=== PATIENT | female | born 1990 | race Caucasian/White ===

== ENCOUNTER 2023-08-16 09:27 | Observation (INO) | payer OTHER, SELFPAY ==
[2023-08-16 09:57] VITALS: BP 109/69; PULSE 85; TEMP 36.1
[2023-08-16 10:17] LABS: Bilirubin Urine NEGATIVE (NEGATIVE); Blood Urine NEGATIVE (NEGATIVE); Clarity Urine CLEAR (CLEAR); Color Urine YELLOW (YELLOW); Glucose Urine UA NEGATIVE (NEGATIVE); Ketones Urine NEGATIVE (NEGATIVE); Leukocyte Esterase Urine LARGE (NEGATIVE); Nitrite Urine NEGATIVE (NEGATIVE); Protein Urine NEGATIVE (NEG/TRACE); Urobilinogen Urine 0.2 EU/dL (0.2-1.0)
[2023-08-16 10:18] LABS: Urine Microscopic Indicated YES
[2023-08-16 10:22] LABS: Amnisure NEGATIVE (NEGATIVE)
--- NOTE | 2023-08-16 10:31 | US_ITS ---
The [address] [address] Patient Name: SURINDER BECKER MRN: [id number] date: 1990 Sex: F Assigned Patient Location: [facility] Current Patient Location: [facility] Accession/Order Number: [id number] Exam Date: 08/16/2023 10:45 Report Date: 08/16/2023 11:20 At the request of: ODETTE ORTEGA Procedure: US OB amniotic fluid vol Obstetrical ultrasound, limited CLINICAL: Possible ROM TECHNIQUE: Transabdominal obstetrical ultrasound was performed. FINDINGS: There are no prior comparison studies at this institution. There is a single living intrauterine fetus in breech presentation with heart rate of 164 beats per minute. Amniotic fluid index is 13.28 cm, with maximum vertical pocket of 5.35 cm. US/US OB amniotic fluid vol IMPRESSION: 1. Single intrauterine fetus in breech presentation with heart rate of 164 beats per minute. The fetus is otherwise not evaluated. 2. Amniotic fluid index of 13.28 cm, with maximum vertical pocket of 5.35 cm. Electronically authenticated by: GEETA MEDEL Date: 08/16/2023 11:20
[2023-08-16 10:34] LABS: Bacteria Urine SMALL #/HPF (NONE SEEN); Cast Seen? NONE SEEN #/LPF (NONE SEEN); Crystals Seen? None Seen #/HPF (None Seen); Mucus Urine NONE SEEN (NONE SEEN); Squamous Epithelial Cell Urine MODERATE #/LPF (NONE/RARE); WBC Urine 20-50 #/HPF (NONE SEEN)
[2023-08-16 10:36] LABS: Urine Culture Indicated YES
== END 2023-08-16 12:14 | disposition home or self-care (01) ==
LOC: FBC 09:34
PROVIDERS: Admitting Provider Obstetrics & Gynecology; Visit Provider Obstetrics & Gynecology
DX: Z03.71 Encounter for suspected problem with amniotic cavity and membrane ruled out (principal); Z3A.31 31 weeks gestation of pregnancy
CPT/HCPCS: 59025; 76815; 81001; 84112; 87070; 87086; G0378; G0379

== ENCOUNTER 2023-10-10 07:15 | Outpatient (OUT) | payer OTHER, SELFPAY ==
--- OUTSIDE RECORDS SUMMARY | 2023-10-10 07:30 | XMS_ITS | CCD ---
Author Name Unknown Address [address] [place] [address] Organization [facility] Care Team Providers Care Freelance Web Designer Name Role Phone ZHANG CURTIS Unavailable Unavailable ZHANG CURTIS Unavailable Unavailable NONE, . Unavailable Unavailable Reyna MAI, Anne Marie De La Rosa Primary Care Provider Mary RODNEY, Leidy Calderon Unavailable FLORO RENE L Attending Unavailable FLORO, RENE L Attending Unavailable FLORO, RENE L Attending Unavailable FLORO, RENE L Attending Unavailable FLORO, RENE L Referring Unavailable FLORO, RENE L Attending Unavailable FLORO, RENE L Referring Unavailable FLORO, RENE L Attending Unavailable Medications Current Medications Medication Drug Class(es) Dates Sig (Normalized) Sig (Original) docusate sodium 100 mg oral capsule (2 sources) Start: 07-30-2023 End: 11-27-2023 take 1 capsule by mouth in the morning docusate sodium (Colace) 100 MG capsule Indications: Anemia during in third trimester Take 1 capsule (100 mg) by mouth in the morning and 1 capsule (100 mg) before bedtime. 60 capsule 3 07/30/2023 11/27/2023 Active ferrous sulfate 325 mg oral tablet (2 sources) Start: 07-30-2023 End: 11-27-2023 take 1 tablet by mouth in the morning ferrous sulfate (FerrouSul) 325 (65 Fe) MG tablet Indications: Anemia during in third trimester Take 1 tablet (325 mg) by mouth in the morning and 1 tablet (325 mg) before bedtime. 60 tablet 3 07/30/2023 11/27/2023 Active fluconazole 150 mg oral tablet (2 sources) Azole Antifungal Start: 10-08-2023 End: 10-08-2023 take 1 tablet by mouth once fluconazole (Diflucan) 150 MG tablet Indications: Yeast infection Take 1 tablet (150 mg) by mouth 1 (one) time for 1 dose 1 tablet 0 10/08/2023 10/08/2023 Active guaiFENesin 20 mg/ml oral solution (2 sources) Start: 08-06-2023 take 10 mL by mouth three times daily as needed for cough guaiFENesin (Robitussin) 100 MG/5ML liquid Indications: Upper respiratory tract infection, unspecified type Take 10 mL (200 mg) by mouth 3 (three) times a day as needed for cough 118 mL 0 08/06/2023 Active Problems Active Problems Problem Classification Problem Date Documented Da te Episodic/Chronic Mycoses (2 sources) Mycosis; Translations: [Candidiasis, unspecified] 10-08-2023 Episodic Other complications of (2 sources) Poor growth affecting management; Translations: [Maternal care for other known or suspected poor growth, third trimester, not applicable or unspecified] 10-08-2023 Episodic Other female genital disorders (2 sources) Vaginal discharge; Translations: [Other specified noninflammatory disorders of vagina] 10-08-2023 Episodic Other and delivery including normal (2 sources) Normal ; Translations: [Encounter for supervision of other normal , third trimester] 10-08-2023 Episodic Past or Other Problems Problem Classification Problem Date Documented Da te Episodic/Chronic Prolonged (2 sources) Post-term ; Translations: [Post-term ] Onset: 03-12-2017 Episodic Results Test Name Value Interpretation Reference Range Facil ity US OB FOLLOW UP TRANSABDOMIN AL APPROACHon 08-06-2023 US OB FOLLOW UP TRANSABDOMINAL APPROACH EXAM: US OB FOLLOW UP TRANSABDOMINAL APPROACH [id number] CLINICAL INDICATION: Growth COMPARISON: 06/04/2023 FINDINGS: Transabdominal imaging was performed. A single living intrauterine demonstrates spontaneous movement. Cervical length is at least 3.9 cm and the cervix is closed. heart rate is 132 beats per minute. Amniotic fluid index is 16.2 cm, 63rd percentile. Fetus is in cephalic position. The placenta is fundal, grade 1. Measurements include: biparietal diameter 7.3 cm, head circumference 27.1 cm, abdominal circumference 25.4 cm and femur length 5.6 cm. This calculates to a mean gestational age by ultrasound of 29 weeks 3 days. Estimated date of delivery is 10/19/2023. Estimated weight is 1404 g (3 pounds 2 ounces). Estimated weight percentile is 39%. On the prior study, weight was 361 g (13 ounces), 50th percentile. There are no gross abnormalities however please note that ultrasound cannot detect all anomalies. IMPRESSION: Single living intrauterine at 29 weeks 3 days by ultrasound. weight is 3 pounds 2 ounces, 39th percentile. ELECTRONICALLY SIGNED BY: Rick Alamo MD Normal Not Available Discharge Summaryon 03-15-20 17 [facility] IP Note OR Mold Sprayer Normal [facility] CBCon 03-14-2017 Erythrocyte distribution width Auto Ratio (RBC) 16.5 % High 12.1-15.2 [facility] Comment on above: Performed By: #### C BC ####[address] [place] [address] Erythrocytes (RBC) 3.13 10*6/uL Low 4.0-5.2 [facility] Comment on above: Performed By: #### C BC ####[address] [place] [address] Hematocrit (HCT) 26.3 % Low 36-46 [facility] Comment on above: Performed By: #### C BC ####[address] [place] [address] Hemoglobin mass conc (Bld) 8.9 g/dL Low 12.0-16.0 [facility] Comment on above: Performed By: #### C BC ####[address] [place] [address] MCH 28.4 pg Normal 26-34 [facility] Comment on above: Performed By: #### C BC ####[address] [place] [address] MCHC mass conc (RBC) 33.8 g/dL Normal 31-37 [facility] Comment on above: Performed By: #### C BC ####[address] [place] [address] MCV 84.0 fL Normal 80-100 [facility] Comment on above: Performed By: #### C BC ####[address] [place] [address] Platelet mean volume (PMV) 9.4 fL Normal 6.0-12.0 [facility] Comment on above: Result Comment: Perf ormed at [address] [place] [address] Performed By: #### C BC ####[address] [place] [address] Platelets 124 10*3/uL Low 140-450 [facility] Comment on above: Performed By: #### C BC ####[address] [place] [address] WBC (Leukocytes) 8.9 10*3/uL Normal 3.5-11.0 [facility] Comment on above: Performed By: #### C BC ####[address] [place] [address] CBC with Diffon 03-12-2017 Abs. Basophil 0.00 k/uL Normal 0.0-0.2 [facility] Comment on above: Result Comment: Perf ormed at [address] [place] [address] Performed By: #### C DP ####[address] [place] [address] Abs.Neutrophil (Seg) 5.00 k/uL Normal 1.8-7.7 [facility] Comment on above: Performed By: #### C DP ####[address] [place] [address] Basophils/100 WBC Auto (Bld) 0 % Normal [facility] Comment on above: Performed By: #### C DP ####[address] [place] [id number] Eosinophils 0.00 10*3/uL Normal 0.0-0.4 [facility] Comment on above: Performed By: #### C DP ####[address] [place] [id number] Eosinophils/100 leukocytes 1 % Normal [facility] Comment on above: Performed By: #### C DP ####[address] [place] [id number] Erythrocyte distribution width Auto Ratio (RBC) 15.5 % High 12.1-15.2 [facility] Comment on above: Performed By: #### C DP ####[address] [place] [address] Erythrocytes (RBC) 3.56 10*6/uL Low 4.0-5.2 [facility] Comment on above: Performed By: #### C DP ####[address] [place] [address] Hematocrit (HCT) 30.0 % Low 36-46 [facility] Comment on above: Performed By: #### C DP ####[address] [place] [address] Hemoglobin mass conc (Bld) 10.2 g/dL Low 12.0-16.0 [facility] Comment on above: Performed By: #### C DP ####[address] [place] [id number] Lymphocytes 1.50 10*3/uL Normal 1.0-4.8 [facility] Comment on above: Performed By: #### C DP ####[address] [place] [address] Lymphocytes/100 leukocytes 21 % Normal [facility] Comment on above: Performed By: #### C DP ####[address] [place] [address] MCH 28.7 pg Normal 26-34 [facility] Comment on above: Performed By: #### C DP ####[address] [place] [address] MCHC mass conc (RBC) 34.0 g/dL Normal 31-37 [facility] Comment on above: Performed By: #### C DP ####[address] [place] [address] MCV 84.3 fL Normal 80-100 [facility] Comment on above: Performed By: #### C DP ####[address] [place] [address] Monocytes 0.50 10*3/uL Normal 0.0-1.0 [facility] Comment on above: Performed By: #### C DP ####[address] [place] [address] Monocytes/100 leukocytes 7 % Normal [facility] Comment on above: Performed By: #### C DP ####[address] [place] [address] Neutrophil (Seg) 71 % Normal [facility] Comment on above: Performed By: #### C DP ####[address] [place] [address] Platelet mean volume (PMV) 10.3 fL Normal 6.0-12.0 [facility] Comment on above: Performed By: #### C DP ####[address] [place] [address] Platelets 131 10*3/uL Low 140-450 [facility] Comment on above: Performed By: #### C DP ####[address] [place] [address] WBC (Leukocytes) 7.0 10*3/uL Normal 3.5-11.0 [facility] Comment on above: Performed By: #### C DP ####[address] [place] [address] Auto Diff Performed NOT REPORTED Normal [facility] Comment on above: Performed By: #### C DP ####[address] [place] [address] Erythrocyte morphology NOT REPORTED Normal [facility] Comment on above: Performed By: #### C DP ####[address] [place] [address] Platelets NOT REPORTED Normal [facility] Comment on above: Performed By: #### C DP ####[address] [place] [address] WBC Morphology NOT REPORTED Normal [facility] Comment on above: Performed By: #### C DP ####[address] [place] [address] Drug Scr, Abuse, Uron 2016 Amphetamine(s),Ur Negative Normal NEG [facility] Comment on above: Performed By: #### D AU ####[address] [place] [address] Barbiturate(s),Ur Negative Normal NEG [facility] Comment on above: Performed By: #### D AU ####[address] [place] [address] Base excess Negative Normal NEG [facility] Comment on above: Performed By: #### D AU ####[address] [place] [address] Benzodiazepine(s) Negative Normal NEG [facility] Comment on above: Performed By: #### D AU ####[address] [place] [address] Buprenorphrine, Ur Negative Normal NEG [facility] Comment on above: Result Comment: Perf ormed at [address] [place] [address] Performed By: #### D AU ####[address] [place] [address] Cannabinoid(s),Ur Negative Normal NEG [facility] Comment on above: Performed By: #### D AU ####[address] [place] [address] Methamphetamine, Ur Negative Normal NEG [facility] Comment on above: Performed By: #### D AU ####[address] [place] [address] Opiate(s), Ur Negative Normal NEG [facility] Comment on above: Performed By: #### D AU ####[address] [place] [address] Oxycodone, Urine Negative Normal NEG [facility] Comment on above: Performed By: #### D AU ####[address] [place] [address] Phencyclidine, Ur Negative Normal NEG [facility] Comment on above: Performed By: #### D AU ####[address] [place] [address] Propoxyphene,Urine Negative Normal NEG [facility] Comment on above: Performed By: #### D AU ####[address] [place] [address] Urine, methadone presence Negative Normal NEG [facility] Comment on above: Performed By: #### D AU ####[address] [place] [address] Urine, tricyclic antidepressants Negative Normal NEG [facility] Comment on above: Result Comment: Drug screen results are to be used for medical purposes only. All positive results are unconfirmed. Testing for employment or legal uses should be sent to a reference laboratory for confirmation. Performed By: #### D AU ####[address] [place] [address] Interpretive Info NOT REPORTED Normal [facility] Comment on above: Performed By: #### D AU ####[address] , [place] [id number] MDMA, Urine NOT REPORTED Normal NEG [facility] Comment on above: Performed By: #### D AU ####[address] [place] [address] History and Physicalon 03-12 HIM IP Note OR Mold Sprayer Normal [facility] Vital Signs Date Time Vital Sign Value Performing Clinician Ladarius domínguez 10-08-2023 14:37-0500 Body mass index (BMI) [Ratio] 29.41 kg/m2 Rene Bailey CN Work Phone: [facility] 10-08-2023 14:37-0500 Body weight 75.3 kg Rene Bailey CN Work Phone: [facility] 10-08-2023 14:37-0500 Diastolic blood pressure 60 mm[Hg] Rene Floro CN Work Phone: [facility] 10-08-2023 14:37-0500 Systolic blood pressure 110 mm[Hg] Rene Ramirezo CN Work Phone: [facility] Healthcare Encounters Encounter Date Encounter Type Care Provider Facility Start: 10-08-2023 ambulatory RENE L FLORO Not [facility] Start: 10-08-2023 ambulatory RENE L FLORO Not [facility] Start: 10-08-2023 End: 10-08-2023 Subsequent care visit Rene Ramirezo CNM Work Phone: [facility] Comment on above: Encounter for superv ision of other normal in third trimester (Primary Dx); Poor growth affecting management of mother in third trimester, single or unspecified fetus; Vaginal discharge; Yeast infection Start: 10-01-2023 End: 10-02-2023 ambulatory RENE L FLORO Not Available Start: 09-17-2023 End: 09-18-2023 ambulatory RENE L FLORO Not Available Start: 09-03-2023 End: 09-04-2023 ambulatory RENE L FLORO Not Available Start: 08-20-2023 End: 08-21-2023 ambulatory RENE L FLORO Not Available Start: 08-06-2023 End: 08-07-2023 ambulatory RENE L FLORO Not Available Start: 07-24-2023 End: 07-25-2023 ambulatory RENE L FLORO Not Available Start: 03-12-2017 End: 03-15-2017 Evaluation and management of inpatient ZHANG CURTIS [facility] Procedures Date Procedure Procedure Detail Performing Clinician Start: 03-15-2017 DISCHARGE PATIENT GAURAV CURTIS Start: 03-14-2017 CBC ZHANG WRAY GES Start: 03-13-2017 ADVANCE DIET TOLE RATED (NURSING COMMUNICATION) ZHANG CURTIS Start: 03-13-2017 AMBULATE PATIENT ZHANG CURTIS Start: 03-13-2017 ASSESS ZHANG WRAY GES Start: 03-13-2017 DIET GENERAL ZHANG WRAY GES Start: 03-13-2017 FULL CODE ZHANG WRAY GES Start: 03-13-2017 ICE TO AFFECTED AREA LITO CURTIS Start: 03-13-2017 NOTIFY PHYSICIAN (SPECIFY) ZHANG CURTIS Start: 03-13-2017 SALINE LOCK IV ZHANG H EDGES Start: 03-13-2017 STRAIGHT CATH ZHANG MASSIMO DGES Start: 03-13-2017 VITAL SIGNS ZHANG WRAY GES Start: 03-13-2017 TRANSFER PATIENT ZHANG CURTIS Start: 03-13-2017 PATIENT STATUS (DIRECT) ZHANG TORRESAmparo Start: 03-12-2017 CBC WITH AUTO DIFFERENTIAL ZHANG BRIANAmparo Start: 03-12-2017 URINE DRUG SCREEN GAURAV CURTIS Start: 02-04-2017 RULE OUT GRP.B STREP LITO CURTIS Start: 08-07-2016 PROFILE I ZOHAIBL ESRA TORRESAmparo Start: 03-07-2016 HIV SCREEN ZHANG [facility] Plan of Treatment Date Care Activity Detail Author Start: 03-01-2026 Screening for malign ant neoplasm of cervix [facility] Start: 10-17-2023 End: 10-17-2023 Patient encounter procedure 10/17/2023 10:00 AM EST Routine [facility] [address] [place] [address] Rene Bailey, CNM [address] [place], [place] [id number] [facility] Start: 10-08-2023 End: 10-08-2023 Professional / ancillary services management 10/08/2023 4:15 PM EST Ancillary Procedure [facility] [address] [address] [facility] Start: 10-08-2023 End: 10-08-2024 US for US OB follow up transabdominal approach Imaging Routine Poor growth affecting management of mother in third trimester, single or unspecified fetus Expected: 10/08/2023, Expires: 10/08/2024 [facility] Work Phone: Comment on above: Expected: 10/08/2023 , Expires: 10/08/2024 Start: 05-03-2023 Influenza vaccination Influenza Vacc ine (#1) [facility] Start: 2012 Screening for malign ant neoplasm of cervix Pap Smear [facility] Payers Date Payer Category Payer Unknown [id number] 2013 Private Health Insurance [employer] [place] [id number] 2013-Present [address] [place] [address] [id number] 2013 Private Health Insurance [id number] 1990 Unknown [id number] [id number] 1990 Unknown [id number] 1259 1990 Unknown [id number] 1259 1990 Unknown [id number] 1259 1990 Unknown [id number] 1259 1990 Unknown [id number] 1259 1990 Unknown [id number] 1259 1990 Unknown [id number] 1259 Social History Date Type Detail Facility Start: 02-28-2023 Tobacco smoking stat [facility] Never smoked tobacco [facility] Start: 02-28-2023 Tobacco use and exposure Smokeless t obacco non-user [facility] Start: 07-03-2023 Alcohol intake Current drinke r of alcohol (finding) [facility] Start: 02-28-2023 History of Social function [facility] Start: 02-28-2023 Tobacco use panel [facility] Start: 02-28-2023 Alcohol Comment Caffeine: > 4 cups/d ay [facility] Start: 01-26-2023 [facility] Start: 1990 Sex Assigned At Not on file [facility] History of Present illness Narrative 10-08-2023 Rene Bailey CNM - 10/08/2023 2:30 PM EST Note Date & Type Note Facility 10-08-2023 History of Presen t illness Narrative Subjective No chief complaint on file. Surinder Becker is a 33 y.o. at 38w3d with a working estimated date of delivery of 10/19/2023, by Last Menstrual Period who presents for a routine visit. She denies vaginal bleeding, leakage of fluid, decreased movements, or contractions. Her is complicated by: small for dates today., Fundal height has been 35-36 x3 weeks. lie to be assessed. Rule out transverse lie Objective Physical Exam weight: 166 lb Expected Total Weight Gain: 25 lb-35 lb Pregravid BMI: 23.74 BP: 110/60 Urine glucose-negative,protein-negative Assessment/Plan Diagnoses and all orders for this visit: Encounter for supervision of other normal in third trimester Poor growth affecting management of mother in third trimester, single or unspecified fetus - US OB follow up transabdominal approach; Future Vaginal discharge Continue vitamin. Labs reviewed. GBS taken. Negative Expected mode of delivery Follow up in 1 week for a routine visit. documented in this encounter [facility] Evaluation note Note Date & Type Note Facility Evaluation note Diagnosis Encounter for supervision of other normal in third trimester- Primary Poor growth affecting management of mother in third trimester, single or unspecified fetus Vaginal discharge Leukorrhea, not specified as infective Yeast infection documented in this encounter [facility] Summary Purpose Family History No Family History Records FoundNo Family History Records Found Advance Directives No Advanced Directives Records FoundNo Advanced Directives Records Found Additional Source Comments INFORMATION SOURCE (unrecogn ized section and content) DATE CREATED AUTHOR 02/26/2018 [facility] DATE CREATED AUTHOR AUTHOR'S ORGANIZ ATION 10/09/2023 [facility] Care Teams (unrecognized sec tion and content) Freelance Web Designer Relationship Specialty Start Date End Date Anne Marie Orellana MD [address] [place], [place] [id number] PCP - General Family Medicine 02/28/23 Leidy Hernandez NP [address] [place] [address] PCP - [facility] 03/02/23 FOR RECORDS PERTAINING TO PATIENTS WHO ARE OR HAVE BEEN ENROLLED IN A CHEMICAL DEPENDENCY/SUBSTANCEABUSE PROGRAM, SOME INFORMATION MAY BE OMITTED. This clinical summary was aggregated from multiple sources. Caution should be exercised in using it in the provision of clinical care. This summary normalizes information from multiple sources, and as a consequence, information in this document may materially change the coding, format and clinical context of patient data. In addition, data may be omitted in some cases. CLINICAL DECISIONS SHOULD BE BASED ON THE PRIMARY CLINICAL RECORDS. [facility] [employer] [facility]. provides no warranty or guarantee of the accuracy or completeness of information in this document.
[2023-10-10 07:50] VITALS: BP 110/69; PULSE 81
[2023-10-10] MEDS: TERBUTALINE SULFATE 1 MG/ML VIAL 0.25 MG SUBQ (08:05)
--- NOTE | 2023-10-10 11:00 | US_ITS ---
[address] [address] Patient Name: SURINDER BECKER MRN: [id number] date: 1990 Sex: F Assigned Patient Location: [facility] Current Patient Location: [facility] Accession/Order Number: [id number] Exam Date: 10/10/2023 11:58 Report Date: 10/10/2023 12:24 At the request of: RENE CAMPOS Procedure: US OB BPP w non-stress EXAMINATION: US OB BPP w non-stress HISTORY: Breech presentation COMPARISON: No relevant comparison available. TECHNIQUE: Ultrasound biophysical profile was performed in the radiology department. FINDINGS: BREATHING MOVEMENTS: 2.0 GROSS BODY MOVEMENTS: 2.0 TONE: 2.0 QUALITATIVE AMNIOTIC FLUID VOLUME: 2.0 PRESENTATION: CEPHALIC HEART RATE: 131.1 bpm H.B./min AMNIOTIC FLUID VOLUME: 12.1 cm cm GESTATIONAL AGE: 38 weeks 5 days CONCLUSION: Total biophysical profile score: 8.0 Electronically authenticated by: REYES DE OLIVEIRA Date: 10/10/2023 12:24
[2023-10-10 12:50] VITALS: BP 104/59; PULSE 74
--- NOTE | 2023-10-31 | OP_ITS ---
OPERATION DATE: 10/31/2023 PREOPERATIVE DIAGNOSIS: Breech presentation. POSTOPERATIVE DIAGNOSIS: Patient was external cephalic version was successful. Infant was turned to cephalic position. PROCEDURE: External cephalic version. PROCEDURE NOTE: Patient was placed on the monitor. NST was found to be reactive prior to external cephalic version. Patient was given [place] prior procedure. Patient, at that point, was attempted under direct ultrasound guidance. The baby was moved from the breech position to the cephalic position. This was done without difficulty. The patient was then monitored for three hours to make sure the baby tolerated the procedure. Biophysical profile was also performed which was 8/8. Please note, prior to procedure, consent was obtained. Risks and benefits were reviewed with patient in great detail. ERWIN
--- NOTE | 2023-11-01 07:38 | PM.OBPN ---
OB - PN: Subj Subjective Patient comments: no complaints and pain well controlled [place] status: doing well Exam Constitutional Vital Signs, click to edit/add: Last Vital Signs Pulse 74 10/10/23 12:50 BP 104/59 10/10/23 12:50 Documenting provider has reviewed patient's vital signs: yes Common normals: no apparent distress Respiratory Common normals: normal respiratory effort and clear to auscultation bilaterally Cardio Common normals: regular rate and regular rhythm GI Common normals: Normal to inspection, nondistended, normoactive bowel sounds present Extremity Common normals: no clubbing, cyanosis or edema and no calf tenderness OB - PN: A/P Plan - Vaginal Delivery day: 1 Plan: routine care, discharge home and follow up 6 weeks Time Spent with Patient Time: Total time spent is greater than 50% in coordination of care (as documented) at patient's floor/unit and/or counseling patient: Total time spent with greater than 50% in coordination of care (as documented) at patient's floor/unit and/or counseling patient: less than 15 minutes
== END 2023-10-10 12:51 | disposition home or self-care (01) ==
LOC: FBCO 07:28 → FBC 07:30
PROVIDERS: Visit Provider Obstetrics & Gynecology
DX: O32.1XX0 Maternal care for breech presentation, not applicable or unspecified (principal); Z3A.38 38 weeks gestation of pregnancy
CPT/HCPCS: 59025; 59412; 76818; 96372

== ENCOUNTER 2023-10-30 02:56 | Inpatient (IN) | payer OTHER, SELFPAY ==
[2023-10-30] VITALS (44 sets, daily range): BP systolic 99–181; BP diastolic 57–86; PULSE 67–114; RESP 10–16; TEMP 35.6–37; O2SAT 97–99
--- OUTSIDE RECORDS SUMMARY | 2023-10-30 02:59 | XMS_ITS | CCD ---
Author Name Unknown Address [address] [place] [address] Organization [facility] Care Team Providers Care Sap Pi Architect Name Role Phone ZHANG CURTIS Unavailable Unavailable ZHANG CURTIS Unavailable Unavailable NONE, . Unavailable Unavailable Reyna MAI, Anne Marie De La Rosa Primary Care Provider Mary RODNEY, Leidy Calderon Unavailable FLORO, RENE L Attending Unavailable FLORO, RENE L Attending Unavailable FLORO, RENE L Attending Unavailable FLORO, RENE L Attending Unavailable FLORO, RENE L Attending Unavailable FLORO, RENE L Referring Unavailable FLORO, RENE L Attending Unavailable FLORO, RENE L Referring Unavailable FLORO, RENE L Attending Unavailable FLORO, RENE L Attending Unavailable Medications Current Medications Medication Drug Class(es) Dates Sig (Normalized) Sig (Original) docusate sodium 100 mg oral capsule (5 sources) Start: 07-30-2023 End: 11-27-2023 take 1 capsule by mouth in the morning docusate sodium (Colace) 100 MG capsule Indications: Anemia during in third trimester Take 1 capsule (100 mg) by mouth in the morning and 1 capsule (100 mg) before bedtime. 60 capsule 3 07/30/2023 11/27/2023 Active ferrous sulfate 325 mg oral tablet (5 sources) Start: 07-30-2023 End: 11-27-2023 take 1 [...] 10/08/2023 Active guaiFENesin 20 mg/ml oral solution (5 sources) Start: 08-06-2023 take 10 mL by mouth three times daily as needed for cough guaiFENesin (Robitussin) 100 MG/5ML liquid Indications: Upper respiratory tract infection, unspecified type Take 10 mL (200 mg) by mouth 3 (three) times a day as needed for cough 118 mL 0 08/06/2023 Active valACYclovir 500 mg oral tablet (2 sources) Herpesvirus Nucleoside Analog DNA Polymerase Inhibitor, Herpes Simplex Virus Nucleoside Analog DNA Polymerase Inhibitor, Herpes Zoster Virus Nucleoside Analog DNA Polymerase Inhibitor Start: 10-17-2023 take 1 tablet by mouth in the morning, then take 1 tablet by mouth twice daily valACYclovir (Valtrex) 500 MG tablet Indications: History of herpes genitalis Take 1 tablet (500 mg) by mouth in the morning. Take 1 tablet (500 mg) by mouth twice daily for 3 days.. 30 tablet 0 10/17/2023 Active Start: 10-17-2023 take 1 tablet by luzma th in the morning, then take 1 tablet by mouth twice daily valACYclovir (Valtrex) 500 MG tablet Indications: History of herpes genitalis Take 1 tablet (500 mg) by mouth in the morning. Take 1 tablet (500 mg) by mouth twice daily for 3 days.. 30 tablet 0 10/17/2023 Active Problems Active Problems Problem Classification Problem [...] noninflammatory disorders of vagina] 10-08-2023 Episodic Other infections; including parasitic (2 sources) History of sexually transmitted disease; Translations: [Personal history of other infectious and parasitic diseases] 10-17-2023 Episodic Other and delivery including normal (4 sources) Normal ; Translations: [Encounter for supervision of other normal , third trimester] 10-08-2023 Episodic Past or Other Problems Problem Classification Problem Date Documented Da te Episodic/Chronic Prolonged (2 sources) Post-term ; Translations: [Post-term ] Onset: 03-12-2017 Episodic Results Test Name Value Interpretation Reference Range Facil ity US OB FOLLOW UP TRANSABDOMIN AL APPROACHon 10-08-2023 US OB FOLLOW UP TRANSABDOMINAL APPROACH FINDINGS: Comparison made with prior examination of August 06, 2023. A single, live intrauterine is present with normal cardiac rate of 147 beats per minute. Normal activity and amniotic fluid volume. Amniotic fluid index is 13.0 cm. Morphology is grossly normal. The cervix is long and closed, 4.3cm. The placenta is posterior not associated with the cervical os. The current sonographic age is 38 weeks and 2 days, based on the following measurements: BPD 9.4cm ( 38 weeks, 2 days) Head Circumference 33.5 cm (38 weeks, 2 days) Abdominal Circumference 34.4cm ( 38 weeks, 2 days) Femur Length 7.6 cm (38 weeks, 4 days) Presentation Breech Placenta posterior These measurements result in an estimated date of delivery of October 20, 2023 The current estimated weight is 3479 grams +/- grams ( 7 pound, 11 ounces, weight by percentile 64.1%). IMPRESSION: Single, live intrauterine , current sonographic age of 38 weeks and 2 days, with an estimated date of delivery of October 20, 2023. (prior estimated deliver was October 19, 2023) TRANSCRIBED BY: ELECTRONICALLY SIGNED BY: Amrit Randolph MD Normal Not Available US OB FOLLOW UP TRANSABDOMIN AL APPROACHon 08-06-2023 US OB FOLLOW UP TRANSABDOMINAL APPROACH EXAM: US OB FOLLOW UP TRANSABDOMINAL APPROACH [id number] CLINICAL INDICATION: Growth COMPARISON: 06/04/2023 FINDINGS: Transabdominal [...] Normal Not Available Discharge Summaryon 03-15-20 17 [facility] IP Note OR Office Engineer Normal [facility] CBCon 03-14-2017 Erythrocyte distribution width Auto Ratio (RBC) 16.5 % High 12.1-15.2 [facility] Comment on above: Performed By: #### C BC ####[address] [place] [address] Erythrocytes (RBC) 3.13 10*6/uL Low 4.0-5.2 [facility] Comment on above: Performed By: #### C BC ####[address] [place] [address] Hematocrit (HCT) 26.3 % Low 36-46 [facility] Comment on above: Performed By: #### C BC ####[address] [place] [address] Hemoglobin mass conc (Bld) 8.9 g/dL Low 12.0-16.0 [facility] Comment on above: Performed By: #### C BC ####[address] [place] [address] MCH 28.4 pg Normal 26-34 [facility] Comment on above: Performed By: #### C BC ####[address] [place] [address] MCHC mass conc (RBC) 33.8 g/dL Normal 31-37 [facility] Comment on above: Performed By: #### C BC ####[address] [place] [address] MCV 84.0 fL Normal 80-100 [facility] Comment on above: Performed By: #### C BC ####[address] [place] [address] Platelet mean volume (PMV) 9.4 fL Normal 6.0-12.0 [facility] Comment on above: Result Comment: Perf ormed at [address] [place] [address] Performed By: #### C BC ####[address] [place] [address] Platelets 124 10*3/uL Low 140-450 [facility] Comment on above: Performed By: #### C BC ####[address] [place] [address] WBC (Leukocytes) 8.9 10*3/uL Normal 3.5-11.0 [facility] Comment on above: Performed By: #### C BC ####[address] [place] [address] CBC with Diffon 03-12-2017 Abs. Basophil 0.00 k/uL Normal 0.0-0.2 [facility] Comment on above: Result Comment: Perf ormed at [address] [place] [address] Performed By: #### C DP ####[address] [place] [address] Abs.Neutrophil (Seg) 5.00 k/uL Normal 1.8-7.7 [facility] Comment on above: Performed By: #### C DP ####[address] [place] [address] Basophils/100 WBC Auto (Bld) 0 % Normal [facility] Comment on above: Performed By: #### C DP ####[address] [place] [address] Eosinophils 0.00 10*3/uL Normal 0.0-0.4 [facility] Comment on above: Performed By: #### C DP ####[address] [place] [address] Eosinophils/100 leukocytes 1 % Normal [facility] Comment on above: Performed By: #### C DP ####[address] [place] [address] Erythrocyte distribution width Auto Ratio (RBC) 15.5 % High 12.1-15.2 [facility] Comment on above: Performed By: #### C DP ####[address] [place] [address] Erythrocytes (RBC) 3.56 10*6/uL Low 4.0-5.2 [facility] Comment on above: Performed By: #### C DP ####[address] [place] [address] Hematocrit (HCT) 30.0 % Low 36-46 [facility] Comment on above: Performed By: #### C DP ####[address] [place] [address] Hemoglobin mass conc (Bld) 10.2 g/dL Low 12.0-16.0 [facility] Comment on above: Performed By: #### C DP ####[address] [place] [address] Lymphocytes 1.50 10*3/uL Normal 1.0-4.8 [facility] Comment on above: Performed By: #### C DP ####[address] [place] [address] Lymphocytes/100 leukocytes 21 % Normal [facility] Comment on above: Performed By: #### C DP ####[address] [place] [address] MCH 28.7 pg Normal 26-34 [facility] Comment on above: Performed By: #### C DP ####[address] , [facility] MCHC mass conc (RBC) 34.0 g/dL Normal 31-37 [facility] Comment on above: Performed By: #### C DP ####[address] [place] [id number] MCV 84.3 fL Normal 80-100 [facility] Comment on above: Performed By: #### C DP ####[address] , [facility]83 Monocytes 0.50 10*3/uL Normal 0.0-1.0 [facility] Comment on above: Performed By: #### C DP ####[address] , [facility]83 Monocytes/100 leukocytes 7 % Normal [facility] Comment on above: Performed By: #### C DP ####[address] [place] [address] Neutrophil (Seg) 71 % Normal [facility] Comment on above: Performed By: #### C DP ####[address] [place] [address] Platelet mean volume (PMV) 10.3 fL Normal 6.0-12.0 [facility] Comment on above: Performed By: #### C DP ####[address] , [facility]83 Platelets 131 10*3/uL Low 140-450 [facility] Comment on above: Performed By: #### C DP ####[address] [place] [address] WBC (Leukocytes) 7.0 10*3/uL Normal 3.5-11.0 [facility] Comment on above: Performed By: #### C DP ####[address] [place] [address] Auto Diff Performed NOT REPORTED Normal [facility] Comment on above: Performed By: #### C DP ####[address] [place] [address] Erythrocyte morphology NOT REPORTED Normal [facility] Comment on above: Performed By: #### C DP ####[address] [place] [address] Platelets NOT REPORTED Normal [facility] Comment on above: Performed By: #### C DP ####[address] [place] [address] WBC Morphology NOT REPORTED Normal [facility] Comment on above: Performed By: #### C DP ####[address] [place] [address] Drug Scr, Abuse, Uron 2016 Amphetamine(s),Ur Negative Normal NEG [facility] Comment on above: Performed By: #### D AU ####[address] [place] [address] Barbiturate(s),Ur Negative Normal NEG [facility] Comment on above: Performed By: #### D AU ####[address] [place] [address] Base excess Negative Normal NEG [facility] Comment on above: Performed By: #### D AU ####[address] [place] [address] Benzodiazepine(s) Negative Normal NEG [facility] Comment on above: Performed By: #### D AU ####[address] [place] [address] Buprenorphrine, Ur Negative Normal NEG [facility] Comment on above: Result Comment: Perf ormed at [address] [place] [address] Performed By: #### D AU ####[address] [place] [address] Cannabinoid(s),Ur Negative Normal NEG [facility] Comment on above: Performed By: #### D AU ####[address] [place] [address] Methamphetamine, Ur Negative Normal NEG [facility] Comment on above: Performed By: #### D AU ####[address] [place] [address] Opiate(s), Ur Negative Normal NEG [facility] Comment on above: Performed By: #### D AU ####[address] [place] [address] Oxycodone, Urine Negative Normal NEG [facility] Comment on above: Performed By: #### D AU ####[address] [place] [address] Phencyclidine, Ur Negative Normal NEG [facility] Comment on above: Performed By: #### D AU ####[address] [place] [address] Propoxyphene,Urine Negative Normal NEG [facility] Comment on above: Performed By: #### D AU ####[address] [place] [address] Urine, methadone presence Negative Normal NEG [facility] Comment on above: Performed By: #### D AU ####[address] , [place] [address] Urine, tricyclic antidepressants Negative Normal NEG [facility] Comment on above: Result Comment: Drug screen results are to be used for medical purposes only. All positive results are unconfirmed. Testing for employment or legal uses should be sent to a reference laboratory for confirmation. Performed By: #### D AU ####[address] [place] [address] Interpretive Info NOT REPORTED Normal [facility] Comment on above: Performed By: #### D AU ####[address] [place] [address] MDMA, Urine NOT REPORTED Normal NEG [facility] Comment on above: Performed By: #### D AU ####[address] , [place] [address] History and Physicalon 03-12 HIM IP Note OR Office Engineer Normal [facility] Vital Signs Date Time Vital Sign Value Performing Clinician Faci lity 10-17-2023 10:04-0500 Body mass index (BMI) [Ratio] 29.76 kg/m2 Rene Jacobo CNM Work Phone: [facility] 10-17-2023 10:04-0500 Body weight 76.2 kg Rene Jacobo CNM Work Phone: [facility] 10-17-2023 10:04-0500 Diastolic blood pressure 70 mm[Hg] Rene Jacobo CNM Work Phone: [facility] 10-17-2023 10:04-0500 Systolic blood pressure 112 mm[Hg] Rene Floro CNM Work Phone: [facility] 10-08-2023 14:37-0500 Body mass index (BMI) [Ratio] 29.41 kg/m2 Rene Jacobo CNM Work Phone: [facility] 10-08-2023 14:37-0500 Body weight 75.3 kg Rene Jacobo CNM Work Phone: [facility] 10-08-2023 14:37-0500 Diastolic blood pressure 60 mm[Hg] Rene Ramirezo CNM Work Phone: [facility] 10-08-2023 14:37-0500 Systolic blood pressure 110 mm[Hg] Rene Ramirezo CNM Work Phone: [facility] Encounters Encounter Date Encounter Type Care Provider Facility Start: 10-22-2023 ambulatory RENE L FLORO Not Yanet ilable Start: 10-17-2023 Bamboo flowsheet Rene L London ro CNM Work Phone: [facility] Start: 10-17-2023 Bamboo flowsheet Rene L London ro CNM Work Phone: [facility] Start: 10-17-2023 End: 10-18-2023 ambulatory RENE L FLORO Not Available Start: 10-17-2023 End: 10-17-2023 Subsequent care visit Rene Ramirezo CNM Work Phone: [facility] Comment on above: History of herpes ge nitalis (Primary Dx); Encounter for supervision of other normal in third trimester Start: 10-08-2023 End: 10-09-2023 ambulatory RENE L FLORO Not Available Start: 10-08-2023 End: 10-09-2023 ambulatory RENE L FLORO Not Available Start: 10-08-2023 End: 10-08-2023 Subsequent care visit Rene Ramirezo CNM Work Phone: [facility] Comment on above: Encounter for [...] Available Start: 08-20-2023 End: 08-21-2023 ambulatory RENE Ny JACOBO Not Available Start: 08-06-2023 End: 08-07-2023 ambulatory RENE BAILEY Not Available Start: 07-24-2023 End: 07-25-2023 ambulatory RENE L JACOBO Not Available Start: 03-12-2017 End: 03-15-2017 Evaluation and management of inpatient ZHANG CURTIS [facility] Procedures Date Procedure Procedure Detail Performing Clinician Start: 03-15-2017 DISCHARGE PATIENT GAURAV CURTIS Start: 03-14-2017 CBC ZHANG WRAY GES Start: 03-13-2017 ADVANCE DIET TOLE RATED (NURSING COMMUNICATION) ZHANG CURTIS Start: 03-13-2017 AMBULATE PATIENT ZHANG CURTIS Start: 03-13-2017 ASSESS ZHNAG WRAY GES Start: 03-13-2017 DIET GENERAL ZHANG WRAY GES Start: 03-13-2017 FULL CODE ZHANG WRAY GES Start: 03-13-2017 ICE TO AFFECTED AREA LITO CURTIS Start: 03-13-2017 NOTIFY PHYSICIAN (SPECIFY) ZHANG BRIANAmparo Start: 03-13-2017 SALINE LOCK IV ZHANG Reeves EDGES Start: 03-13-2017 STRAIGHT CATH ZHANG KEYS DGES Start: 03-13-2017 VITAL SIGNS ZHANG WRAY GES Start: 03-13-2017 TRANSFER PATIENT ZHANG CURTIS Start: 03-13-2017 PATIENT STATUS (DIRECT) ZHANG CURTIS Start: 03-12-2017 CBC WITH AUTO DIFFERENTIAL ZHANG CURTIS Start: 03-12-2017 URINE DRUG SCREEN GAURAV CURTIS Start: 02-04-2017 RULE OUT GRP.B STREP LITO CURTIS Start: 08-07-2016 PROFILE I ZOHAIBL SERA CURTIS Start: 03-07-2016 HIV SCREEN ZHANG WRAY GES Plan of Treatment Date Care Activity Detail Author Start: 03-01-2026 Screening for malign ant neoplasm of cervix [facility] Start: 10-22-2023 End: 10-22-2023 Patient encounter procedure 10/22/2023 11:30 AM EST Routine [facility] [address] [place] [address] Rene Bailey, CNM [address] [place] [address] [facility] Start: 10-17-2023 End: 10-17-2023 Patient encounter procedure 10/17/2023 10:00 AM EST Routine [facility] [address] [place] [address] Rene Bailey, CNM [address] [place], [place] [id number] [facility] Start: 10-08-2023 End: 10-08-2023 Professional / ancillary services management 10/08/2023 4:15 PM EST Ancillary Procedure [facility] [address] [address] [facility] Start: 10-08-2023 End: 10-08-2024 US for US OB follow up transabdominal approach Imaging Routine Poor growth affecting management of mother in third trimester, single or unspecified fetus Expected: 10/08/2023, Expires: 10/08/2024 [facility] Work Phone: Comment on above: Expected: 10/08/2023 , Expires: 10/08/2024 Start: 05-03-2023 Influenza vaccination Influenza Vacc ine (#1) [facility] Start: 2012 Screening for malign ant neoplasm of cervix Pap Smear [facility] Payers Date Payer Category Payer Unknown [id number] 2013 Private Health Insurance [facility] [id number] 2013-Present [address] [place] [address] [id number] 2013 Private Health Insurance [id number] 1991 Unknown [id number]. 1259 1991 Unknown [id number] [id number]. 1259 1991 Unknown [id number] [id number]. 1259 1991 Unknown [id number] [id number]. 1259 1991 Unknown [id number] [id number]. 1259 1991 Unknown [id number] [id number]. 1259 1991 Unknown [id number] [id number]. 1259 1991 Unknown [id number] 2.16.840.1.282886.3.579.2. 9 1991 Unknown [id number] [id number]. 9 1991 Unknown [id number] [id number]. 1259 Social History Date Type Detail Facility Start: 02-28-2023 Tobacco smoking stat [facility] Never smoked tobacco [facility] Start: 02-28-2023 [...] [facility] History of Present illness Narrative 10-17-2023 Rene Bailey CNM - 10/17/2023 10:00 AM EST Note Date & Type Note Facility 10-17-2023 History of Presen t illness Narrative Subjective No chief complaint on file. Surinder Becker is a 33 y.o. at 39w5d with a working estimated date of delivery of 10/19/2023, by Last Menstrual Period who presents for a routine visit. She denies vaginal bleeding, leakage of fluid, decreased movements, or contractions. Her is complicated by: history of version with Dr Raya and baby is cephalic today. SVE /, 70/-3 Objective Physical Exam weight: 168 lb Expected Total Weight Gain: 25 lb-35 lb Pregravid BMI: 23.74 BP: 112/70 Assessment/Plan Diagnoses and all orders for this visit: History of herpes genitalis - valACYclovir (Valtrex) 500 MG tablet; Take 1 tablet (500 mg) by mouth in the morning. Take 1 tablet (500 mg) by mouth twice daily for 3 days.. Encounter for supervision of other normal in third trimester Continue vitamin. Labs reviewed GBS negative Expected mode of delivery Follow up in 1 week for a routine visit and NST documented in this encounter [facility] History of Present illness Narrative 10-08-2023 [...] infection documented in this encounter [facility] Evaluation note Note Date & Type Note Facility Evaluation note Diagnosis History of herpes genitalis- Primary Encounter for supervision of other normal in third trimester documented in this encounter [facility] Summary Purpose Family History No Family History Records FoundNo Family History Records Found Advance Directives No Advanced Directives Records FoundNo Advanced Directives Records Found Additional Source Comments INFORMATION SOURCE (unrecogn ized section and content) DATE CREATED AUTHOR 02/26/2018 [facility] DATE CREATED AUTHOR AUTHOR'S ORGANIZ ATION 10/23/2023 [facility] Care Teams (unrecognized sec tion and content) Sap Pi Architect Relationship Specialty Start Date End Date Anne Marie Orellana MD [address] [place] [address] PCP - General Family Medicine 02/28/23 Leidy Hernandez NP [address] [place] [address] PCP - [facility] 03/02/23 Sap Pi Architect Relationship Specialty Start Date End Date Anne Marie Orellana MD [address] [place] [address] PCP - General Family [facility] 02/28/23 Leidy Hernandez NP [address] [place] [address] PCP - [facility] 03/02/23 Sap Pi Architect Relationship Specialty Start Date End Date Anne Marie Orellana MD [address] [facility] [place] [address] PCP - General Family Medicine 02/28/23 Leidy Hernandez NP [address] [facility] [address] [place] [id number] PCP - [facility] 03/02/23 FOR RECORDS PERTAINING TO PATIENTS [...] BE BASED ON THE PRIMARY CLINICAL RECORDS. [facility]. provides no warranty or guarantee of the accuracy or completeness of information in this document.
[2023-10-30 04:18] LABS: Hematocrit 30.3 % (36.0-48.0); Hemoglobin 9.9 g/dL (12.0-16.0); Mean Corpuscular HGB Conc 32.7 g/dL (29.9-35.2); Mean Corpuscular Hemoglobin 29.3 pg (26.7-34.0); Mean Corpuscular Volume 89.6 fL (81.0-99.0); Mean Platelet Volume 11.5 fL (9.5-13.5); Platelet Count 128 10^3/uL (150-450); Red Blood Count 3.38 10^6/uL (4.20-5.40); Red Cell Distribution Width 14.6 % (11.0-15.0); White Blood Count 5.2 10^3/uL (4.0-11.0)
[2023-10-30 04:28] LABS: Amphetamine Screen Urine NEGATIVE (NEGATIVE); Barbiturates Screen Urine NEGATIVE (NEGATIVE); Benzodiazepines Screen Urine NEGATIVE (NEGATIVE); Buprenorphine Screen Urine NEGATIVE (NEGATIVE); Cannabinoid Screen Urine NEGATIVE (NEGATIVE); Cocaine Screen Urine NEGATIVE (NEGATIVE); Methadone Screen Urine NEGATIVE (NEGATIVE); Methamphetamines Screen Urine NEGATIVE (NEGATIVE); Opiate Screen Urine NEGATIVE (NEGATIVE); Oxycodone Screen Urine NEGATIVE (NEGATIVE); Phencyclidine Screen Urine NEGATIVE (NEGATIVE); Tricyclic Antidepressant Urine NEGATIVE (NEGATIVE)
[2023-10-30] MEDS: OXYTOCIN/0.9 % SODIUM CHLORIDE 10 UNITS/500 ML PLAST..BAG 3 UNIT IV (05:00)
[2023-10-30] MEDS: LACTATED RINGER'S SOLUTION 1,000 ML 125 ML IV ×3 (05:00→20:10)
--- NOTE | 2023-10-30 08:06 | US_ITS ---
[address] [address] Patient Name: SURINDER BECKER MRN: [id number] date: 1990 Sex: F Assigned Patient Location: [facility] Current Patient Location: [facility] Accession/Order Number: [id number] Exam Date: 10/30/2023 08:07 Report Date: 10/30/2023 08:38 At the request of: RENE CAMPOS Procedure: US OB limited Obstetrical ultrasound, limited CLINICAL: looking for position and lie , postdates. TECHNIQUE: Transabdominal obstetrical ultrasound was performed. FINDINGS: Comparison to 10/10/2023 There is a single living intrauterine fetus in vertex presentation and longitudinal lie, with heart rate of 135 beats per minute. Fetus and otherwise not evaluated. US/US OB limited IMPRESSION: 1. Single intrauterine fetus in vertex presentation and longitudinal lie. heart rate of 135 beats per minute. Electronically authenticated by: GEETA MEDEL Date: 10/30/2023 08:38
--- NOTE | 2023-10-30 08:06 | PM.OBHP ---
OB - H&P: HPI History of Present Illness Chief complaint: INDUCTION : 4 Para: 2 Gestational age based on last menstrual period: 41.4 Indications for induction: other (post dates ) History of Present Dating criteria: LMP confirmed by 1st trimester US care: good care Ultrasounds: normal 1st trimester US complications: other complications comment: had breech presentation and successful version per Dr Raya Medical complications OB: none Labs Blood type: B (+) positive Rubella: immune RPR/VDLR: nonreactive GBS status: negative HBsAG: negative Review of Systems ROS Status of ROS: 10 or more systems reviewed and unremarkable except as noted in history and below PFSH PFSH Social History Highest level of school completed/degree received: Associate degree: occupational, technical, vocational program Meds Home Medications and Allergies Allergies Allergy/AdvReac Type Severity Reaction Status Date / Time No Known Drug Allergies Allergy Verified 10/10/23 07:59 Exam Constitutional Vital Signs, click to edit/add: Last Vital Signs Temp 96.1 F L 10/30/23 05:01 Pulse 67 10/30/23 08:01 Resp 16 10/30/23 06:31 BP 105/71 10/30/23 08:01 Documenting provider has reviewed patient's vital signs: yes Common normals: oriented x3 General appearance: cooperative HENMT Common normals: normocephalic Eye Common normals: EOMs intact bilaterally Neck & C-Spine Common normals: full ROM and no lymphadenopathy Lymph Lymphatic: no lymphadenopathy noted Chest Common normals: inspection of chest normal Respiratory Common normals: normal respiratory effort Cardio Common normals: regular rate and regular rhythm Rate: regular rate Rhythm: regular rhythm GI Common normals: Normal to inspection, nondistended, normoactive bowel sounds present Inspection: normal to inspection Auscultation: normoactive bowel sounds Palpation: soft Percussion: normal to percussion Common normals: external appearance normal Back & Pelvis Common normals: no CVA tenderness General back: CVA tenderness Thoracic spine/upper back: normal to inspection Lumbar spine/lower back: normal to inspection Extremity Common normals: normal to inspection General: normal exam except as noted Neuro Common normals: oriented x3 Sensorium/orientation: awake, alert, oriented to person, oriented to place and oriented to time Psych Psychiatry clinicians, please identify where your Mental Status Exam is documented: Mental Status Exam documented in the separate MSE Attitude: calm Speech: normal speech Thought process: normal thought process Results Labs Labs: Short CBC 10/30/23 Range/Units 04:00 WBC 5.2 (4.0-11.0) 10^3/uL Hgb 9.9 L (12.0-16.0) g/dL Hct 30.3 L (36.0-48.0) % Plt Count 128 L (150-450) 10^3/uL OB - A/P Assessment and Plan (1) Term : Plan admit for elective induction for post dates.
--- NOTE | 2023-10-30 08:42 | PM.EN ---
Event Note Event Note: SVE patient is stretchy 2cm/70/-1 AROM performed with sterile amni hook with return of small amount of blood tinged, odorless fluid. heart tones stable before, during and after ROM. Patient tolerated procedure well.
[2023-10-30] MEDS: LIDOCAINE VISCOUS 2% 15 ML SOLUTION 5 ML TOPICAL (15:45)
[2023-10-30] MEDS: OXYTOCIN/0.9 % SODIUM CHLORIDE 20 UNITS/1,000 ML PLAST..BAG 125 UNIT IV ×2 (15:50→19:41)
[2023-10-30] MEDS: METHYLERGONOVINE MALEATE 0.2 MG/ML AMPULE 0.200000000000000011 MG IM (15:54)
[2023-10-30] MEDS: MISOPROSTOL 100 MCG TABLET 1000 MCG PR (15:55)
[2023-10-30] MEDS: LIDOCAINE HCL 1% 200 MG/20 ML MDV INJ (15:57)
--- NOTE | 2023-10-30 16:32 | PM.OBPRCVD ---
Procedure Procedure: with post hemorrhage events: Labor Induction and Labor Augmentation Induction method: per pitocin protocol Delivery augmentation: rupture of membranes Delivery monitor: external FHT and external uterine Route of delivery: Episiotomy Description: none L&D Laceration Description: perineal - 2nd degree Delivery repair: Vicryl Estimated blood loss (mL): 600 Anesthesia type: nitrous oxide Disposition: no change Infant Delivery date: 10/30/23 Gender: male presentation: vertex Placental delivery description: Spontaneous cord description: 3 Vessels, Nuchal Cord and Loose (reduced with delivery ) heart rate - 1 minute: 100 bpm or Greater respiratory effort - 1 minute: Spontaneous/Strong Cry muscle tone - 1 minute: Active Movement reflex response - 1 minute: Prompt Response color - 1 minute: Bluish Hands or Feet total score - 1 minute: 9 heart rate - 5 minute: 100 bpm or Greater respiratory effort - 5 minute: Spontaneous/Strong Cry muscle tone - 5 minute: Active Movement reflex response - 5 minute: Prompt Response color - 5 minute: Bluish Hands or Feet total score - 5 minute: 9
[2023-10-30] MEDS: IBUPROFEN 400 MG TABLET 800 MG PO (16:51)
[2023-10-30] MEDS: GLYCERIN/WITCH HAZEL PADS 1 PAD TOPICAL (18:34)
[2023-10-30] MEDS: BENZOCAINE/MENTHOL 85 GRAM SPRAY BOTTLE 1 APPLIC TOPICAL (18:34)
[2023-10-30] MEDS: CARBOPROST TROMETHAMINE 250 MCG/ML 1 ML VIAL IM (19:37)
[2023-10-30 19:39] LABS: Basophils Percent Auto 0.2 % (0.2-2.0); Eosinophils Percent Auto 0.2 % (0.9-7.0); Hematocrit 27.5 % (36.0-48.0); Hemoglobin 8.8 g/dL (12.0-16.0); Immature Granulocytes Abs Auto 0.04 10^3/uL (0.00-0.03); Immature Granulocytes Pct Auto 0.3 % (0.0-0.5); Lymphocytes Absolute Auto 1.2 10^3/uL (1.2-3.8); Lymphocytes Percent Auto 10.4 % (20.5-60.0); Mean Corpuscular Hemoglobin 28.5 pg (26.7-34.0); Mean Platelet Volume 11.2 fL (9.5-13.5); Monocytes Absolute Auto 0.8 10^3/uL (0.3-0.8); Neutrophils Absolute Auto 9.6 10^3/uL (1.4-6.5); Neutrophils Percent Auto 81.9 % (43.0-75.0); Platelet Count 136 10^3/uL (150-450); Red Blood Count 3.09 10^6/uL (4.20-5.40); Red Cell Distribution Width 14.3 % (11.0-15.0); White Blood Count 11.7 10^3/uL (4.0-11.0)
--- NOTE | 2023-10-30 20:52 | US_ITS ---
[address] [address] Patient Name: SURINDER BECKER MRN: [id number] date: 1990 Sex: F Assigned Patient Location: [facility] Current Patient Location: [facility] Accession/Order Number: [id number] Exam Date: 10/30/2023 21:05 Report Date: 10/30/2023 22:02 At the request of: RENE CAMPOS Procedure: US pelvis transvaginal EXAM: US pelvis transvaginal HISTORY: retained placenta COMPARISON: None. TECHNIQUE: Endovaginal approach pelvic ultrasound is performed. Multiple hammer scale and color images are submitted for review. FINDINGS: The uterus is anteverted and measures 16.7 x 10.3 x 9.6 cm. The uterus demonstrates normal echotexture. Approximately 2.2 x 2.4 x 1.7 cm hypoechoic area is seen in the fundal region of the endometrium which demonstrates vascularity, and which may represent retained products of conception. Bilateral ovaries are not visualized. Small free fluid is seen in the cul-de-sac. US/US pelvis transvaginal IMPRESSION: Approximately 2.2 x 2.4 x 1.7 cm hypoechoic area is seen in the fundal region of the endometrium which demonstrates vascularity, and which may represent retained products of conception. Small free cul-de-sac fluid. Electronically authenticated by: VISHNU ALONSO Date: 10/30/2023 22:02
[2023-10-30] MEDS: CEFAZOLIN SODIUM/DEXTROSE,ISO 2 GM/50 ML PIGGYBACK IV (21:57)
--- NOTE | 2023-10-30 22:31 | P.ON_ITS ---
Brief Operative Note Date of procedure: 10/30/23 Pre-op diagnosis: retained placenta Post-op diagnosis: same as pre-op Procedure: NAME OF PROCEDURE: [D&C suction ] PROCEDURE: The patient was taken back to the OR where she was given general anesthesia without difficulty. She was then placed in dorsal lithotomy position, prepped and draped in the normal sterile fashion. A weighted speculum was placed in the patient's vagina and the anterior lip of the cervix was identified and grasped with a single-tooth tenaculum. The patient was then gently dilated using Hegar dilators after we had sounded roughly to 12 cm. The suction curette was then tested. The suction curette was then placed in the patient's uterus and products of conception were removed using an 12-Colombian suction curette. ?Excellent hemostasis was noted. The patient tolerated the procedure well. Sponge, lap, and needle counts were correct x 2. All instruments were then removed from the patient's vagina. The patient was taken to the Recovery Room in stable condition. ?? Anesthesia: GAYLEA Surgeon: Jeb Raya Estimated blood loss (mL): 20 Pathology: other (retained placenta) Condition: stable Disposition: PACU Urinary Catheter Management Urinary Catheter Management Straight: Cath placed during this visit: no
--- NOTE | 2023-10-30 22:51 | PC.NURSE ---
No active vaginal drainage
--- NOTE | 2023-10-30 22:59 | PC.NURSE ---
No active vaginal drainage noted
--- NOTE | 2023-10-30 23:02 | PC.NURSE ---
No active vaginal drainage noted
--- NOTE | 2023-10-30 23:11 | PC.NURSE ---
No active vaginal drainage noted
[2023-10-30] MEDS: KETOROLAC TROMETHAMINE 30 MG/ML VIAL IVP (23:40)
--- NOTE | 2023-10-30 23:53 | PC.NURSE ---
1929: Report received from Glen Rothman RN. Care assumed 1939: RN at bedside, Pt states I feel like i'm gushing. Pt is semi-fowlers in bed breast feeding Nb. Fundus is firm 1-2 above umbilicus with small clots noted on the ice pack. Moderate amount of blood noted on brief and chucks. RN called a 2nd RN for assistance. Pt placed supine and brief and ice pack removed. Fundus massaged, 4 small-moderate clots with moderate gush of blood expressed. Fundus remains firm and is now below umbilicus but continues to trickle- to small gushes of blood with massage. Pt denies any Sx of light headedness, dizziness. Second nurse leaves room to notify provider. Chucks and brief weighed per hemorrhage protocol. Blood loss- 260 ml. 1943: BEN Rothman recv'd orders from [facility]. 1948: Hemabate 1ml IM to Right Thigh 1952: Pt assessment: 112/70 HR-96 Resp. 18. Pt alert and oriented x3 and appropriate. LS clear t/o, non-labored, BS active. Abdomen palpates soft, non-tender. Fundus firm 1-2 below umbilicus. Bleeding is small at this time. Ellie sign negative bilaterally, no edema noted. Pt appears pale though she says that is her baseline. Oral temp 99.5 1999: This RN spoke with SERGEY whitney. She is on her way in to evaluate Pt, Asked to have OB on stand by in case she needs a pelvis US, in addition to orders for a second IV access site preferably 18 gauge, and start 1000 ml LR. 2004: Blood transfusion discussed, 2 units on stand by per Dr. Raya. Blood consent reviewed and signed with pt and this RN 2012: SERGEY Caldwell in dept. 2012: CNM at pt bedside. Exam performed, large amount of blood and clots evacuated. chucks weighed per [facility] protocol- blood loss 310 ml for a total of 570 ml since 1939. 2027: LR infusion started at 125 ml/hr. 2029: CNM orders US to rule out retained placenta. 2043: Pt placed on bedpan. Large loose BM 2054: US and CNM at bedside. 2113: Pt needs surgery d/t retained placenta per CNArden. Pt educated and consented with CNM. 2114: NB to breast 2118: Registration called and informed to call in OR team, FA, Anesthesia and PACU. 2129: IV tubing changed to gravity tubing for OR. 2149: NB off breast. Pt on bedpan, 200 ml of urine and blood. 2155: Dr. Raya and SERGEY Caldwell at Pt bedside. 2156: Ancef 2 gm IVPB 2157: Pt to surgery per BEN Polo
[2023-10-31] VITALS (7 sets, daily range): BP systolic 99–113; BP diastolic 55–74; PULSE 74–93; RESP 16–18; TEMP 35.8–36.9
[2023-10-31 06:16] LABS: Basophils Percent Auto 0.1 % (0.2-2.0); Immature Granulocytes Abs Auto 0.05 10^3/uL (0.00-0.03); Immature Granulocytes Pct Auto 0.5 % (0.0-0.5); Lymphocytes Absolute Auto 1.2 10^3/uL (1.2-3.8); Lymphocytes Percent Auto 12.1 % (20.5-60.0); Mean Corpuscular HGB Conc 32.6 g/dL (29.9-35.2); Mean Corpuscular Hemoglobin 29.3 pg (26.7-34.0); Mean Platelet Volume 11.6 fL (9.5-13.5); Monocytes Absolute Auto 0.4 10^3/uL (0.3-0.8); Monocytes Percent Auto 4.2 % (1.7-12.0); Neutrophils Absolute Auto 7.9 10^3/uL (1.4-6.5); Neutrophils Percent Auto 83.1 % (43.0-75.0); Platelet Count 121 10^3/uL (150-450); Red Blood Count 2.39 10^6/uL (4.20-5.40); Red Cell Distribution Width 14.3 % (11.0-15.0); White Blood Count 9.5 10^3/uL (4.0-11.0)
[2023-10-31 06:31] LABS: Hematocrit 21.5 % (36.0-48.0)
[2023-10-31] MEDS: CEFAZOLIN SODIUM/DEXTROSE,ISO 2 GM/50 ML PIGGYBACK IV (07:05)
[2023-10-31] MEDS: IBUPROFEN 400 MG TABLET 800 MG PO ×3 (07:06→23:35)
[2023-10-31] MEDS: DOCUSATE SODIUM 100 MG CAPSULE PO ×2 (08:04→21:51)
[2023-10-31] MEDS: FERROUS SULFATE 325 MG TABLET PO ×2 (08:04→21:51)
--- NOTE | 2023-10-31 09:21 | PM.OBPN ---
OB - PN: Subj Subjective Patient comments: no complaints [place] status: doing well [place] feeding status: exclusively Exam Constitutional Vital Signs, click to edit/add: Last Vital Signs Temp 98.5 F 10/31/23 08:07 Pulse 85 10/31/23 07:56 Resp 17 10/31/23 08:07 BP 100/58 10/31/23 07:56 Pulse Ox 98 10/30/23 23:09 O2 Del Method Room Air 10/30/23 23:09 Documenting provider has reviewed patient's vital signs: yes Common normals: no apparent distress Orientation/consciousness: Yes awake, Yes oriented to person, Yes oriented to place and Yes oriented to time HENMT Common normals: normocephalic Eye Common normals: PERRL Neck & C-Spine Common normals: full ROM Lymph Lymphatic: no lymphadenopathy noted Chest Common normals: inspection of chest normal Respiratory Common normals: normal respiratory effort Cardio Common normals: regular rate and regular rhythm Rate: regular rate Rhythm: regular rhythm GI Common normals: Normal to inspection, nondistended, normoactive bowel sounds present Palpation: soft Common normals: no CVA tenderness Back & Pelvis Common normals: no CVA tenderness Extremity Common normals: normal to inspection and full ROM General: normal exam except as noted Neuro Common normals: oriented x3 Sensorium/orientation: awake, alert, oriented to person, oriented to place and oriented to time Psych Common normals: mental status grossly normal and thought process normal Attitude: calm Activity/motor behavior: appropriate eye contact Results Labs Labs: Short CBC 10/30/23 10/31/23 Range/Units 19:22 06:05 WBC 11.7 H 9.5 (4.0-11.0) 10^3/uL Hgb 8.8 L 7.0 L (12.0-16.0) g/dL Hct 27.5 L 21.5 L* (36.0-48.0) % Plt Count 136 L 121 L (150-450) 10^3/uL Urinary Catheter Management Urinary Catheter Management Straight: Cath placed during this visit: no OB - PN: A/P Assessment and Plan (1) Term : Plan - Vaginal Delivery day: 1 Plan: routine care Comment: s/p post hemorrhage , post op suction D&C doing well Time Spent with Patient Time: Total time spent is greater than 50% in coordination of care (as documented) at patient's floor/unit and/or counseling patient: Total time spent with greater than 50% in coordination of care (as documented) at patient's floor/unit and/or counseling patient: less than 15 minutes
--- NOTE | 2023-11-01 07:43 | PM.OBPN ---
OB - PN: Subj Subjective Patient comments: no complaints and pain well controlled [place] status: doing well Exam Constitutional Vital Signs, click to edit/add: Last Vital Signs Temp 98.5 F 10/31/23 23:39 Pulse 74 10/31/23 23:36 Resp 16 10/31/23 23:39 BP 102/58 10/31/23 23:36 Pulse Ox 98 10/30/23 23:09 O2 Del Method Room Air 10/31/23 23:42 Documenting provider has reviewed patient's vital signs: yes Common normals: no apparent distress Respiratory Common normals: clear to auscultation bilaterally Cardio Common normals: regular rate and regular rhythm GI Common normals: Normal to inspection, nondistended, normoactive bowel sounds present Extremity Common normals: no clubbing, cyanosis or edema and no calf tenderness Urinary Catheter Management Urinary Catheter Management Straight: Cath placed during this visit: no OB - PN: A/P Assessment and Plan (1) Term : Plan - Vaginal Delivery day: 2 Plan: routine care, discharge home and follow up 6 weeks Time Spent with Patient Time: Total time spent is greater than 50% in coordination of care (as documented) at patient's floor/unit and/or counseling patient: Total time spent with greater than 50% in coordination of care (as documented) at patient's floor/unit and/or counseling patient: less than 15 minutes
[2023-11-01] MEDS: IBUPROFEN 400 MG TABLET 800 MG PO ×2 (07:57→15:02)
[2023-11-01] MEDS: FERROUS SULFATE 325 MG TABLET PO (07:58)
[2023-11-01] MEDS: DOCUSATE SODIUM 100 MG CAPSULE PO (07:58)
[2023-11-01 09:00] VITALS: BP 126/74; PULSE 72; RESP 16; TEMP 37.1
--- NOTE | 2023-11-01 10:36 | PC.NURSE ---
1000- Educated patient on , proper latch, measured for proper flange fit, demonstrated syringe feeding with 3 ml of pumped breastmilk. Pt. had pumped 20 ml of colostrum, educated patient on breatfeeding routines, and awaiting pumping for storage supply until routines are established. Encouragement and reassurance given to patient, patient latches to breast, assist with lip flanging and positioning, infant with good milk transfer, swallowing noted.
[2023-11-01] MEDS: CEPHALEXIN 500 MG CAPSULE PO (13:50)
== END 2023-11-01 15:15 | disposition home or self-care (01) | DRG 797 ==
PROVIDERS: Obstetrics & Gynecology; Admitting Provider Midwife; Visit Provider Midwife
PROC: 10D17ZZ Extraction of Products of Conception, Retained, Via Natural or Artificial Opening (ICD-10-PCS; principal; 2023-10-30 22:00)
DX: O48.0 Post-term pregnancy (principal); O72.0 Third-stage hemorrhage; Z37.0 Single live birth; Z3A.41 41 weeks gestation of pregnancy; O70.1 Second degree perineal laceration during delivery
CPT/HCPCS: 36415; 59050; 59410; 76815; 76830; 80307; 85025; 85027; 86850; 86900; 86901; 88305; 96372; 96374; 96375; 96376; 99999; J1094; J2704

== ENCOUNTER 2023-11-04 08:21 | Outpatient (OUT) | payer OTHER, SELFPAY ==
--- OUTSIDE RECORDS SUMMARY | 2023-11-04 08:24 | XMS_ITS | CCD ---
Author Name Unknown Address [address] [place] [address] Organization [facility] Care Team Providers Care Reconciler Name Role Phone ZHANG CURTIS Unavailable Unavailable ZHANG CURTIS Unavailable Unavailable NONE, . Unavailable Unavailable Reyna MAI, Anne Marie De La Rosa Primary Care Provider [phone] Mary RODNEY, Leidy Calderon Unavailable FLORO, RENE [...] Value Interpretation Reference Range Facil ity US BIOPHYSICAL PROFILE WO NON STRESS TESTINGon 10-24-2023 US BIOPHYSICAL PROFILE WO NON STRESS TESTING FINDINGS: Breathing Movements 2 Gross Body Movements 2 Tone 2 Qualitative amniotic fluid volume 2 A single, viable intrauterine is present. HARDIK 12.0 cm. Cervix closed 3.8 cm length. IMPRESSION: Normal biophysical profile. TRANSCRIBED BY: ELECTRONICALLY SIGNED BY: Amrit Randolph [...] EXAM: US OB FOLLOW UP TRANSABDOMINAL APPROACH [id number] CLINICAL INDICATION: Growth COMPARISON: 06/04/2023 FINDINGS: Transabdominal [...] Normal Not Available Discharge Summaryon 03-15-20 17 [facility] Note OR Trial Judge Normal [facility] CBCon 03-14-2017 Erythrocyte distribution width Auto Ratio (RBC) 16.5 % High 12.1-15.2 [facility] Comment on above: Performed By: #### C BC ####[address] [place] [address](801) Erythrocytes (RBC) 3.13 10*6/uL Low 4.0-5.2 [facility] Comment on above: Performed By: #### C BC ####[address] [place] [address](910) Hematocrit (HCT) 26.3 % Low 36-46 [facility] Comment on above: Performed By: #### C BC ####[address] [place] [address](141) Hemoglobin mass conc (Bld) 8.9 g/dL Low 12.0-16.0 [facility] Comment on above: Performed By: #### C BC ####[address] [place] [address] MCH 28.4 pg Normal 26-34 [facility] Comment on above: Performed By: #### C BC ####[address] [place] [address] MCHC mass conc (RBC) 33.8 g/dL Normal 31-37 [facility] Comment on above: Performed By: #### C BC ####[address] [place] [address] MCV 84.0 fL Normal 80-100 [facility] Comment on above: Performed By: #### C BC ####[address] [place] [address] Platelet mean volume (PMV) 9.4 fL Normal 6.0-12.0 [facility] Comment on above: Result Comment: Perf ormed at [address] [place] [address] Performed By: #### C BC ####[address] [place] [address] Platelets 124 10*3/uL Low 140-450 [facility] Comment on above: Performed By: #### C BC ####[address] [place] [address] WBC (Leukocytes) 8.9 10*3/uL Normal 3.5-11.0 [facility] Comment on above: Performed By: #### C BC ####[address] [place] [address] CBC with Diffon 03-12-2017 Abs. Basophil 0.00 k/uL Normal 0.0-0.2 [facility] Comment on above: Result Comment: Perf ormed at [address] [place] [address] Performed By: #### C DP ####[address] [place] [address] Abs.Neutrophil (Seg) 5.00 k/uL Normal 1.8-7.7 [facility] Comment on above: Performed By: #### C DP ####[address] [place] [address] Basophils/100 WBC Auto (Bld) 0 % Normal [facility] Comment on above: Performed By: #### C DP ####[address] [place] [address] Eosinophils 0.00 10*3/uL Normal 0.0-0.4 [facility] Comment on above: Performed By: #### C DP ####[address] [facility]83 Eosinophils/100 leukocytes 1 % Normal [facility] Comment on above: Performed By: #### C DP ####[address] , [facility]83 Erythrocyte distribution width Auto Ratio (RBC) 15.5 % High 12.1-15.2 [facility] Comment on above: Performed By: #### C DP ####[address] [facility]83 Erythrocytes (RBC) 3.56 10*6/uL Low 4.0-5.2 [facility] Comment on above: Performed By: #### C DP ####[address] , [facility]83 Hematocrit (HCT) 30.0 % Low 36-46 [facility] Comment on above: Performed By: #### C DP ####[address] [facility]83 Hemoglobin mass conc (Bld) 10.2 g/dL Low 12.0-16.0 [facility] Comment on above: Performed By: #### C DP ####[address] [place] [address] Lymphocytes 1.50 10*3/uL Normal 1.0-4.8 [facility] Comment on above: Performed By: #### C DP ####[address] [place] [address] Lymphocytes/100 leukocytes 21 % Normal [facility] Comment on above: Performed By: #### C DP ####[address] [place] [address] MCH 28.7 pg Normal 26-34 [facility] Comment on above: Performed By: #### C DP ####[address] [place] [address] MCHC mass conc (RBC) 34.0 g/dL Normal 31-37 [facility] Comment on above: Performed By: #### C DP ####[address] [place] [address] MCV 84.3 fL Normal 80-100 [facility] Comment on above: Performed By: #### C DP ####[address] [place] [address] Monocytes 0.50 10*3/uL Normal 0.0-1.0 [facility] Comment on above: Performed By: #### C DP ####[address] , [facility]83 Monocytes/100 leukocytes 7 % Normal [facility] Comment on above: Performed By: #### C DP ####[address] [place] [address] Neutrophil (Seg) 71 % Normal [facility] Comment on above: Performed By: #### C DP ####[address] [place] [address] Platelet mean volume (PMV) 10.3 fL Normal 6.0-12.0 [facility] Comment on above: Performed By: #### C DP ####[address] [place] [address] Platelets 131 10*3/uL Low 140-450 [facility] Comment on above: Performed By: #### C DP ####[address] [place] [address] WBC (Leukocytes) 7.0 10*3/uL Normal 3.5-11.0 [facility] Comment on above: Performed By: #### C DP ####[address] [place] [address] Auto Diff Performed NOT REPORTED Normal [facility] Comment on above: Performed By: #### C DP ####[address] [place] [address] Erythrocyte morphology NOT REPORTED Normal [facility] Comment on above: Performed By: #### C DP ####[address] [place] [address] Platelets NOT REPORTED Normal [facility] Comment on above: Performed By: #### C DP ####[address] [place] [address] WBC Morphology NOT REPORTED Normal [facility] Comment on above: Performed By: #### C DP ####[address] [place] [address] Drug Scr, Abuse, Uron 2016 Amphetamine(s),Ur Negative Normal NEG [facility] Comment on above: Performed By: #### D AU ####[address] [place] [address] Barbiturate(s),Ur Negative Normal NEG [facility] Comment on above: Performed By: #### D AU ####[address] [place] [address] Base excess Negative Normal NEG [facility] Comment on above: Performed By: #### D AU ####[address] [place] [address] Benzodiazepine(s) Negative Normal NEG [facility] Comment on above: Performed By: #### D AU ####[address] [place] [address] Buprenorphrine, Ur Negative Normal NEG [facility] Comment on above: Result Comment: Perf ormed at [address] [place] [address] Performed By: #### D AU ####[address] [place] [address] Cannabinoid(s),Ur Negative Normal [facility] Comment on above: Performed By: #### D AU ####[address] [place] [address] Methamphetamine, Ur Negative Normal NEG [facility] Comment on above: Performed By: #### D AU ####[address] [place] [address] Opiate(s), Ur Negative Normal NEG [facility] Comment on above: Performed By: #### D AU ####[address] [place] [address] Oxycodone, Urine Negative Normal NEG [facility] Comment on above: Performed By: #### D AU ####[address] [place] [address] Phencyclidine, Ur Negative Normal NEG [facility] Comment on above: Performed By: #### D AU ####[address] [place] [address] Propoxyphene,Urine Negative Normal NEG [facility] Comment on above: Performed By: #### D AU ####[address] [place] [address] Urine, methadone presence Negative Normal NEG [facility] Comment on above: Performed By: #### D AU ####[address] [place] [address] Urine, tricyclic antidepressants Negative Normal NEG [facility] Comment on above: Result Comment: Drug screen results are to be used for medical purposes only. All positive results are unconfirmed. Testing for employment or legal uses should be sent to a reference laboratory for confirmation. Performed By: #### D AU ####[address] [place] [address] Interpretive Info NOT REPORTED Normal [facility] Comment on above: Performed By: #### D AU ####[address] [place] [address] MDMA, Urine NOT REPORTED Normal NEG [facility] Comment on above: Performed By: #### D AU ####[address] [place] [address] History and Physicalon 03-12 HIM IP Note OR Trial Judge Normal [facility] Vital Signs Date Time Vital Sign Value Performing Clinician Ladarius domínguez 10-17-2023 10:04-0500 Body mass index (BMI) [Ratio] 29.76 kg/m2 Rene Ashleydora [facility] Work Phone: [facility] 10-17-2023 10:04-0500 Body weight 76.2 kg Renemilton Bailey [facility] Work Phone: [facility] 10-17-2023 10:04-0500 Diastolic blood pressure 70 mm[Hg] Rene Floro [facility] Work Phone: [facility] 10-17-2023 10:04-0500 Systolic blood pressure 112 mm[Hg] Rene Floro CNM Work Phone: [facility] 10-08-2023 14:37-0500 Body mass index (BMI) [Ratio] 29.41 kg/m2 Rene Floro CNM Work Phone: [facility] 10-08-2023 14:37-0500 Body weight 75.3 kg Rene Ashleyo CNM Work Phone: [facility] 10-08-2023 14:37-0500 Diastolic blood pressure 60 mm[Hg] Rene Ashleyo CNM Work Phone: [facility] 10-08-2023 14:37-0500 Systolic blood pressure 110 mm[Hg] Rene Floro CNM Work Phone: [facility] Encounters Encounter Date Encounter Type Care Provider Facility Start: 10-28-2023 End: 10-29-2023 ambulatory RENE L FLORO Not Available Start: 10-24-2023 End: 10-25-2023 ambulatory RENE L FLORO Not Available Start: 10-22-2023 End: 10-23-2023 ambulatory RENE L FLORO Not Available Start: 10-17-2023 Bamboo flowsheet Rene L London ro CNM Work Phone: [facility] Start: 10-17-2023 Bamboo flowsheet Rene L London ro CNM Work Phone: [facility] Start: 10-17-2023 End: 10-18-2023 ambulatory RENE L FLORO Not Available Start: 10-17-2023 End: 10-17-2023 Subsequent care visit Rene L Floro CNM Work Phone: [facility] Comment on above: History of herpes ge nitalis (Primary Dx); Encounter for supervision of other normal in third trimester Start: 10-08-2023 End: 10-09-2023 ambulatory RENE L FLORO Not Available Start: 10-08-2023 End: 10-09-2023 ambulatory RENE L FLORO Not Available Start: 10-08-2023 End: 10-08-2023 Subsequent care visit Rene Ramirezo SERGEY Work Phone: [facility] Comment on [...] Evaluation and management of inpatient ZHANG CURTIS [facility] Procedures Date Procedure Procedure Detail Performing Clinician Start: 03-15-2017 DISCHARGE PATIENT GAURAV CURTIS Start: 03-14-2017 CBC ZHANG WRAY GES Start: 03-13-2017 ADVANCE DIET TOLE RATED (NURSING COMMUNICATION) ZHANG TORRESAmparo Start: 03-13-2017 AMBULATE PATIENT ZHANG CURTIS Start: 03-13-2017 ASSESS ZHANG WRAY GES Start: 03-13-2017 DIET GENERAL ZHANG WRAY GES Start: 03-13-2017 FULL CODE ZHANG WRAY GES Start: 03-13-2017 ICE TO AFFECTED AREA [place] TORRESAmparo Start: 03-13-2017 NOTIFY PHYSICIAN (SPECIFY) ZHANG CURTIS Start: 03-13-2017 SALINE LOCK IV ZHANG Reeves EDGES Start: 03-13-2017 STRAIGHT CATH ZHANG MASSIMO DGES Start: 03-13-2017 VITAL SIGNS ZHANG WRAY GES Start: 03-13-2017 TRANSFER PATIENT ZHANG CURTIS Start: 03-13-2017 PATIENT STATUS (DIRECT) ZHANG CURTIS Start: 03-12-2017 CBC WITH AUTO DIFFERENTIAL ZHANG CURTIS Start: 03-12-2017 URINE DRUG SCREEN GAURAV CURTIS Start: 02-04-2017 RULE OUT GRP.B STREP LITO CURTIS Start: 08-07-2016 PROFILE I MYLA CURTIS Start: 03-07-2016 HIV SCREEN ZHANG DOMINIQUE Plan of Treatment Date Care Activity Detail Author Start: 03-01-2026 Screening for malign ant neoplasm of cervix [facility] Start: 10-22-2023 End: 10-22-2023 Patient encounter procedure 10/22/2023 11:30 AM EST Routine [facility] [address] [place] [id number] Rene Bailey, [facility] [address] [place] [address] [facility] Start: 10-17-2023 End: 10-17-2023 Patient encounter procedure 10/17/2023 10:00 AM EST Routine [facility] [address] [place] [id number] Rene Bailey, [facility] [address] [place] [address] [facility] Start: 10-08-2023 End: 10-08-2023 Professional / ancillary services management 10/08/2023 4:15 PM EST Ancillary Procedure [facility] [phone] [id number] [facility] Start: 10-08-2023 End: 10-08-2024 US for US OB follow up transabdominal approach Imaging Routine Poor growth affecting management of mother in third trimester, single or unspecified fetus Expected: 10/08/2023, Expires: 10/08/2024 [facility] Work Phone: Comment on above: Expected: 10/08/2023 , Expires: 10/08/2024 Start: 05-03-2023 Influenza vaccination Influenza Vacc ine (#1) [facility] Start: 2012 Screening for malign ant neoplasm of cervix Pap Smear [facility] Healthcare Payers Date Payer Category Payer Unknown [id number] 2013 Private Health Insurance [facility] [id number] 2013-[place] [address] [place] [address] [id number] 2013 Private Health Insurance [id number] 1991 Unknown [id number] [id number]. 9 1991 Unknown [id number] 2.16.840.1.829733.3.579.2. 9 1991 Unknown [id number] 2.16.840.1.996962.3.579.2. 9 1991 Unknown [id number] 2.16.840.1.429596.3.579.2. 9 1991 Unknown [id number] 2.16.840.1.846564.3.579.2. 9 1991 Unknown [id number] 2.16.840.1.561032.3.579.2. 9 1991 Unknown [id number] 2.16.840.1.592361.3.579.2. 9 1991 Unknown [id number] 2.16.840.1.099501.3.579.2. 9 1991 Unknown [id number] 2.16.840.1.107990.3.579.2. 9 1991 Unknown [id number] 2.16.840.1.908018.3.579.2. 1259 1991 Unknown [id number] 2.16.840.1.093173.3.579.2. 9 1991 Unknown [id number] 2.16.840.1.653181.3.579.2. 1259 Social History Date Type Detail Facility [facility]: [facility] Start: 02-28-2023 [...] Raya and baby is cephalic today. SVE 1/soft, 70/-3 Objective Physical Exam weight: 168 lb [...] visit and NST documented in this encounter [facility] History of Present illness Narrative 10-08-2023 [...] and content) DATE CREATED AUTHOR 02/26/2018 Varsha griffin DATE CREATED AUTHOR AUTHOR'S ORGANIZ ATION 11/01/2023 [facility] Care Teams (unrecognized sec tion and content) Reconciler Relationship Specialty Start Date End Date Anne Marie Orellana MD [address] [place] [address] PCP - General Family Medicine 02/28/23 Leidy Hernandez NP [address] [facility] [place] [address] PCP - [facility] 03/02/23 Reconciler Relationship Specialty Start Date End Date Anne Marie Orellana MD [address] [facility] [place] [address] PCP - [facility] 02/28/23 Leidy Hernandez NP [address] [facility] [place] [address] PCP - [facility] 03/02/23 Reconciler Relationship Specialty Start Date End Date Anne Marie Orellana MD [address] [facility] [place] [address] PCP - [facility] 02/28/23 Leidy Hernandez NP [address] [facility] [place] [address] PCP - [facility] 03/02/23 FOR RECORDS PERTAINING TO PATIENTS WHO [...] BE BASED ON THE PRIMARY CLINICAL RECORDS. [facility] [employer] [facility]. provides no warranty or guarantee of the accuracy or completeness of information in this document.
--- NOTE | 2023-11-04 20:04 | PC.NURSE ---
Davin Mcfadden and 5 day old Nox arrive for follow up appointment. Parents states doing well, is more difficult than I remember . States has very sore nipples, and baby has hard time latching and remaining latched. Experienced mom. Lesa assessment WNL, except bilateral woumds on nipple tips. Rates pain 5-6 with feeding. Reviewed breast care and deeper latching. Reviewed possible lip and tongue tie and impact on breast feeding Parents states We are usually not in favor of doing anything about it. Our other children had this and now it is causing other issues. Parents request in depth discussion of tongue tie, revision ,referral and post revision care/success. Parents open to information and hand outs give. states is here to support decisions made per the parents. Will explore latching options for optimal feed while they decide on best course for . Nox with VSS and assessment WNL with exception of slight lip tie, lip easily rolled back and tongue frenulum evident, short and tight. Difficult to lateralized tongue, no cupping noted. Infant to breast difficult latch in cross cradle or football hold. To recliner chair and demo of laid back nursing and latched deeper, mom feels slight tenderness, no sharp, pain. with multiple swallows. Feeds 20/15 well. Mom states best feed yet Will return 11/08/2023 for further assistance. [facility] May contact Dr Francisco for evaluation of infant mouth. Leaves ambulatory with family
[2023-11-04 20:06] VITALS: BP 111/73; PULSE 90; RESP 16; TEMP 36.8; O2SAT 96
== END 2023-11-04 16:20 | disposition home or self-care (01) ==
LOC: FBCO 08:22
PROVIDERS: Visit Provider Obstetrics & Gynecology
DX: Z39.2 Encounter for routine postpartum follow-up (principal)